=== PATIENT | male | born 1975 | race Caucasian/White ===

== ENCOUNTER 2024-01-22 05:36 | Day surgery (SDC) | payer OTHER ==
[2024-01-18 12:13] VITALS: BMI 36.7
[2024-01-22] MEDS ORDERED: LIDOCAINE 1% (10MG/ML) FOR IV START INTRADERMA PRN (06:01)
[2024-01-22] MEDS: IV FLUID CONTINUATION 1,000 ML IV ONE (07:10)
[2024-01-22 07:17] VITALS: RESP 16; TEMP 97.4
[2024-01-22 07:27] LABS: Glucose,Whole Blood 120 mg/dL (70-110)
[2024-01-22] MEDS: DESMOPRESSIN ACETATE 20 MCG in SODIUM CHLORIDE 0.9% 50 ML IVPB ONE (07:31)
[2024-01-22] MEDS: LACTATED RINGERS 1,000 ML IV SCH (07:31)
[2024-01-22] MEDS ORDERED: PROPOFOL 10 MG/ML 20 ML VIAL IV ONE (07:37)
--- NOTE | 2024-01-22 08:04 | P.PCN ---
Date of Procedure: 01/22/24 Procedure(s) Performed: Brief history: Patient is a pleasant 48-year-old white male scheduled for an elective upper endoscopy as well as colonoscopy as a part of evaluation of abdominal pain, intermittent nausea and chronic diarrhea for the last 1 year duration. Procedure performed: Esophagogastroduodenoscopy with biopsy Colonoscopy with biopsy Preoperative diagnosis: Abdominal pain/intermittent nausea Anesthesia: [facility] [place] Procedure: After informed consent was obtained from the patient was brought into the endoscopy unit and IV sedation was administered by anesthesia under continuous monitoring. Initially upper endoscopy was done. The Olympus GF 160 video endoscope was inserted inserted into the mouth and esophagus intubated without any difficulty and was gradually advanced into the stomach and duodenum and carefully examined. The bulb and second part of the duodenum had scalloping of the mucosa with decreased duodenal folds all suspicious for celiac disease and multiple biopsies were done from this area.. The scope was then withdrawn into the stomach adequately insufflated with air and upon careful examination the antrum had mild linear areas of erythema consistent with gastritis. Biopsies were done from this area. Mucosa body, cardia and fundus appeared normal. The scope was then withdrawn into the esophagus. The GE junction was located at 40 cm to the incisors. It appeared regular with no erythema erosions or ulcerations. Rest of the esophagus appeared normal. Patient tolerated the procedure well. At this time the patient continued to remain sedation. Initial digital rectal examination was normal. Olympus CF 160 video colonoscope was then inserted into the rectum and gradually advanced to the cecum without any difficulty. Careful examination was performed as the scope was gradually being withdrawn. The prep was excellent. The cecum, ascending colon, transverse colon, descending colon, sigmoid colon and rectum appeared normal. Apices were done from the ascending and descending colon to rule out microscopic/collagenous colitis retroflexion was performed in the rectum and no lesions were noted. Patient tolerated the procedure well. Impression: 1. Upper endoscopy revealed mild antral gastritis and scalloping of the duodenal mucosa with decreased duodenal folds suspicious celiac disease s/p multiple biopsies 2. Colonoscopy was within normal limits with no evidence of colorectal neoplasia Recommendations: Findings of this examination were discussed with the patient as well as his family. He was advised to follow-up with the biopsy results. He will be seen in the office in 2 weeks. Obtain celiac panel today. Follow-up in office in 2 weeks.
[2024-01-22 08:30] VITALS: BP 100/65; PULSE 73
[2024-01-22 18:24] LABS: Gliadin AB IgA, Deaminated POSITIVE; Gliadin AB IgA, Unit 46.2 U/mL; Gliadin AB IgG, Deaminated POSITIVE; Gliadin AB IgG, Unit 21.7 U/mL
== END 2024-01-22 08:51 | disposition home or self-care (01) ==
LOC: ORWHC2ENDO 05:36
PROVIDERS: ATTEND Internal Medicine Gastroenterology
DX: K29.50 Unspecified chronic gastritis without bleeding (principal); K52.9 Noninfective gastroenteritis and colitis, unspecified; D72.820 Lymphocytosis (symptomatic)
CPT/HCPCS: 88305; 83516 ×4; 45380; 43239; J2704; J2597